=== PATIENT | male | born 1980 | race Caucasian/White ===

== ENCOUNTER 2020-09-25 20:48 | Emergency (ER) | payer SELFPAY ==
[~2020-09-25] VITALS: Ht 170.2 cm; Wt 71.7 kg
--- NOTE | 2020-09-25 21:16 | NUR ---
PATIENT CAME TO ER BED 12 BIBRA 60 C/O ALTERED MENTAL STATUS. PATIENT WAS FOUND AT A 7-ELEVEN SHAKING AND DISPLAYING BIZARRE BEHAVIOR. UNABLE TO OBTAIN HISTORY OR INFORMATION FROM PATIENT BECAUSE PATIENT IS NOT ANSWERING QUESTIONS. PATIENT IS CURRENTLY STRAINING AND SHAKING. PATIENT IS RESPONSIVE TO PAINFUL STIMULI. PATIENT IS BREATHING EVENLY AND UNLABORED ON ROOM AIR. CONNECTED TO THE MOTOR VEHICLE DISPATCHER.
--- NOTE | 2020-09-25 21:20 | NUR ---
PATIENT TAKEN TO CT VIA [facility]
[2020-09-25 21:47] LABS: BASOPHILS % (AUTO) 0.2 % (0.0-2.0); EOSINOPHILS % (AUTO) 3.2 % (0.0-6.0); HEMATOCRIT 39 % (39-51); LYMPHOCYTES # (AUTO) 1.1 /CMM (0.8-4.8); LYMPHOCYTES % (AUTO) 11.3 % (20.0-44.0); MEAN CORPUSCULAR HGB CONC 34 g/dl (31.0-36.0); MEAN CORPUSCULAR VOLUME 96 fL (80-96); MONOCYTES # (AUTO) 0.7 /CMM (0.1-1.30); MONOCYTES % (AUTO) 7.2 % (2.0-12.0); NEUTROPHILS # (AUTO) 7.6 /CMM (1.8-8.9); NEUTROPHILS % (AUTO) 78.1 % (43.0-81.0); PLATELET COUNT (AUTO) 183 /CMM (150-450); RED BLOOD CELL COUNT(AUTO) 4.05 MIL/uL (4.5-6.0); WHITE BLOOD COUNT (AUTO) 9.7 K/uL (4.3-11.0)
[2020-09-25 21:59] LABS: SERUM AMMONIA 29 umol/L (11-32)
[2020-09-25 22:01] LABS: BILIRUBIN,URINE NEGATIVE (NEGATIVE); COLOR,URINE YELLOW (YELLOW); LEUKOCYTE ESTERASE ,URINE NEGATIVE (NEGATIVE); NITRITE, URINE NEGATIVE (NEGATIVE); PH,URINE 5.5 (5.0-8.0); PROTEIN,URINE NEGATIVE (NEGATIVE); UGLUCOSE NEGATIVE (NEGATIVE)
[2020-09-25 22:06] LABS: RBC,URINE 0-2 /HPF (0-2); WBC,URINE 0-2 /HPF (0-3)
[2020-09-25 22:07] LABS: BACTERIA,URINE None seen /HPF (None Seen); MUCUS,URINE Few /LPF (None Seen); SQUAMOUS EPITHELIAL CELL,UR 0-2 /HPF (None Seen)
[2020-09-25 22:23] LABS: ALANINE AMINOTRANSFERASE 20 U/L (12-78); ALBUMIN 3.2 g/dL (3.4-5.0); ALCOHOL, BLOOD < 3 mg/dL (0-0); ALKALINE PHOSPHATASE 68 U/L (46-116); ASPARTATE AMINOTRANSFERASE 22 U/L (15-37); BILIRUBIN,DIRECT 0.1 mg/dL (0.0-0.2); BILIRUBIN,TOTAL 0.4 mg/dL (0.2-1.0); CARBON DIOXIDE 29 mmol/L (21-32); CHLORIDE 105 mmol/L (98-107); CREATININE 0.9 mg/dL (0.6-1.3); GLUCOSE 114 mg/dL (74-106); POTASSIUM 3.2 mmol/L (3.5-5.1); SODIUM SERUM 145 mmol/L (136-145); TOTAL PROTEIN, SERUM 6.9 g/dL (6.4-8.2); UREA NITROGEN, BLOOD 15 mg/dL (7-18)
[2020-09-25 22:25] LABS: ACETAMINOPHEN < 2 ug/ml (10-30); CALCIUM, SERUM 5.3 mg/dL (8.5-10.1)
[2020-09-25] MEDS ORDERED: CALCIUM CARBONATE (1250) 500 MG TABLET PO SCH (22:30)
--- NOTE | 2020-09-25 22:38 | NUR ---
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 no med available in the E
[2020-09-25] MEDS ORDERED: CALCIUM CARBONATE (1250) 500 MG TABLET ONE (22:41)
--- NOTE | 2020-09-26 05:50 | NUR ---
PATIENT AMBULATORY WITH A STEADY GAIT.
--- NOTE | 2020-09-26 05:55 | NUR ---
IV removed. Catheter intact and site benign. Pressure and 4x4 applied to site. No bleeding noted.
--- NOTE | 2020-09-26 05:55 | NUR ---
Patient discharged to home in stable condition. Written and verbal after care instructions given. Patient verbalizes understanding of instruction.
[2020-09-26 05:56] VITALS: BP 123/66
== END 2020-09-26 05:57 | disposition home or self-care (01) ==
LOC: EDBD 20:52 → ER 20:52
DX: R41.82 Altered mental status, unspecified (principal); E83.51 Hypocalcemia; Z59.0 Homelessness
CPT/HCPCS: 36415; 70450-TC; 71045-TC; 80048-TC; 80076-TC; 81001; 82140-TC; 84484-TC; 85025-TC; G0480